=== PATIENT | male | born 2000 | race Caucasian/White ===

== ENCOUNTER 2022-04-23 11:55 | Outpatient (CLI) | payer BC | END 2022-04-23 11:56 | disposition home or self-care (01) | LOC: SCSRAD 11:55 | PROVIDERS: ATTEND Family Medicine | DX: M54.2 Cervicalgia (principal) | CPT/HCPCS: 72040 ==

== ENCOUNTER 2023-07-23 08:23 | Outpatient (CLI) | payer BC | END 2023-07-23 08:24 | disposition home or self-care (01) | LOC: SCSMRI 08:23 | PROVIDERS: ATTEND Family Medicine | DX: M54.12 Radiculopathy, cervical region (principal); G89.4 Chronic pain syndrome; M47.24 Other spondylosis with radiculopathy, thoracic region; M51.14 Intervertebral disc disorders with radiculopathy, thoracic region | CPT/HCPCS: 72072; 72141; 72146 ==